=== PATIENT | male | born 1940 | race Caucasian/White ===

== ENCOUNTER 2018-06-16 08:46 | Emergency (ER) | payer MEDICARE ==
[~2018-06-16] VITALS: Ht 167.6 cm; Wt 73.1 kg
--- NOTE | 2018-06-16 08:46 | NUR ---
PT BIBA BLS TO BED 10
[2018-06-16 08:50] VITALS: BP 108/46
--- NOTE | 2018-06-16 08:55 | NUR ---
BIB EMS FROM A SNF WITH C/O BLOOD IN THE URINE TODAY, NAUSEA AND VOMITING YESTERDAY; PT HARD OF HEARING DENIES PAIN AT THIS TIME HX; DM, DEMENTIA, HTN, STROKE, WA RX; ASA, [place]ARTAN, ATENOLOL
--- NOTE | 2018-06-16 09:01 | NUR ---
77/M, BROUGHT IN BY EMS. PATIENT PRESENTS TO ED WITH RED TINGED URINE. PT LIVES IN A RETIREMENT, THEY REPORT HE HAS HAD FREQUENCY OVER THE LAST FEW DAYS. RED TINGED URINE X1DAY, N/V X2DAYS. SKIN IS PINK/WARM/DRY; PATIENT HAS DEMENTIA,HARD OF HEARING. GAIT; LUNGS CLEAR BL; HR EVEN AND REGULAR; PT DENIES ANY FEVER, CP, SOB, OR COUGH AT THIS TIME; PATIENT STATES PAIN OF 0/10 AT THIS TIME; VSS; PT. HAS HX OF DIABETES, KS, AND STROKE PATIENT POSITIONED FOR COMFORT; HOB ELEVATED; BEDRAILS UP X2; BED DOWN. ER MD MADE AWARE OF PT STATUS.
--- NOTE | 2018-06-16 09:03 | NUR ---
Patient being evaluated by physician at bedside.
[2018-06-16] MEDS ORDERED: DONE5TAB6 PO (09:06)
[2018-06-16] MEDS ORDERED: ZET10 PO (09:06)
[2018-06-16] MEDS ORDERED: TRAZ-343 PO (09:06)
[2018-06-16] MEDS ORDERED: INSU10SU2 SC (09:06)
[2018-06-16] MEDS ORDERED: COLE1TAB PO (09:06)
[2018-06-16] MEDS ORDERED: LOSA25TA15 PO (09:06)
[2018-06-16] MEDS ORDERED: SERT25TA PO (09:06)
[2018-06-16] MEDS ORDERED: ASPI81CT89 PO (09:06)
[2018-06-16] MEDS ORDERED: ATEN25TA7 PO (09:06)
[2018-06-16] MEDS ORDERED: NACL 0.9% 1,000 ML IV ONE (09:10)
--- NOTE | 2018-06-16 09:14 | NUR ---
LAB AT BEDSIDE.
--- NOTE | 2018-06-16 09:34 | NUR ---
[facility] in [facility] - 06/16/18 at 0936 by [email or web address] PT AMBULATES TO BED 3 WITH FAMILY
--- NOTE | 2018-06-16 09:35 | NUR ---
PT TAKEN TO CT VIA [facility]
--- NOTE | 2018-06-16 09:46 | NUR ---
PT RETURNED FROM CT
[2018-06-16 09:55] LABS: BASOPHILS % (AUTO) 0.3 % (0.0-2.0); EOSINOPHILS % (AUTO) 0.2 % (0.0-4.0); HEMATOCRIT 46.8 % (36-52); HEMOGLOBIN 15.3 g/dL (12.0-18.0); LYMPHOCYTES # (AUTO) 1.2 K/uL (2.0-11.5); LYMPHOCYTES % (AUTO) 10.3 % (20.5-51.1); MEAN CORPUSCULAR HEMOGLOBIN 30 pg (27-31); MEAN CORPUSCULAR HGB CONC 33 g/dL (33-37); MEAN CORPUSCULAR VOLUME 91.1 fL (80-94); MONOCYTES # (AUTO) 0.8 K/uL (0.8-1.0); MONOCYTES % (AUTO) 6.9 % (1.7-9.3); NEUTROPHILS # (AUTO) 9.7 K/uL (1.8-7.7); NEUTROPHILS % (AUTO) 82.3 % (42.2-75.2); PLATELET COUNT (AUTO) 176 K/uL (140-450); RED BLOOD CELL COUNT(AUTO) 5.14 MIL/uL (4.20-6.10); RED CELL DISTRIBUTION WIDTH 14.8 % (11.6-13.7); WHITE BLOOD COUNT (AUTO) 11.7 K/uL (4.8-10.8)
[2018-06-16 10:10] LABS: CHLORIDE 102 mmol/L (98-107); POTASSIUM 4.9 mmol/L (3.5-5.1); SODIUM SERUM 141 mmol/L (136-145)
[2018-06-16 10:11] LABS: ANION GAP 17.8 (8-16); CARBON DIOXIDE 26.1 mmol/L (21-32); GLUCOSE 285 mg/dL (74-106); TOTAL BILIRUBIN 0.6 mg/dL (0.0-1.0); UREA NITROGEN, BLOOD 26 mg/dL (7-18)
[2018-06-16 10:17] LABS: PROTHROMBIN TIME 10.1 secs (10.8-13.4)
[2018-06-16 10:29] LABS: APPEARANCE,URINE SLIGHTLY HAZY (CLEAR); COLOR,URINE YELLOW (YELLOW); PH,URINE 5.5 (5.0-9.0)
[2018-06-16 10:30] LABS: BILIRUBIN,URINE NEGATIVE (NEGATIVE); BLOOD, URINE 1+ (NEGATIVE); LEUKOCYTE ESTERASE ,URINE NEGATIVE (NEGATIVE); NITRITE, URINE NEGATIVE (NEGATIVE); UGLUCOSE 2+ (NEGATIVE)
[2018-06-16 10:34] LABS: RBC,URINE 3-10 (FEW) /HPF (0-5); URINE AMORPHOUS URATE 1+ /HPF (None Seen); WBC,URINE 0-5 (RARE) /HPF (0-5)
[2018-06-16 10:35] LABS: HYALINE CASTS, URINE 0-10 /LPF (None Seen)
[2018-06-16 10:39] LABS: ALBUMIN 3.3 g/dL (3.4-5.0); ASPARTATE AMINOTRANSFERASE 21 U/L (15-37)
--- NOTE | 2018-06-16 11:16 | NUR ---
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
--- NOTE | 2018-06-16 12:50 | NUR ---
PT EATING LUNCH PROVIDED BY [facility], NO C/O PAIN AT THIS TIME, WILL CONTINUE TO MONITOR
[2018-06-16 13:47] VITALS: BP 142/74
--- NOTE | 2018-06-16 13:47 | NUR ---
Patient discharged with v/s stable. Written and verbal after care instructions given and explained. Patient alert, oriented and verbalized understanding of instructions. Wheel Chair Assisted with by caregiver. All questions addressed prior to discharge. ID band removed. Patient advised to follow up with PMD. Rx of Motrin given. Patient educated on indication of medication including possible reaction and side effects. Opportunity to ask questions provided and answered.
== END 2018-06-16 13:47 | disposition home or self-care (01) ==
LOC: MED 08:46
DX: N20.0 Calculus of kidney (principal); E11.9 Type 2 diabetes mellitus without complications; I10 Essential (primary) hypertension; E78.00 Pure hypercholesterolemia, unspecified; Z88.8 Allergy status to other drugs, medicaments and biological substances; Z79.899 Other long term (current) drug therapy
CPT/HCPCS: 36415; 74176; 80053; 81001; 82948; 85025; 85610; 85730; 96360; 99284; C1758; J7030